=== PATIENT | female | born 2000 | race Hispanic/Latino ===

== ENCOUNTER 2025-08-26 14:24 | Emergency (ER) | payer OTHER ==
[~2025-08-26] VITALS: Ht 170.2 cm; Wt 73.0 kg
[2025-08-26 14:27] VITALS: TEMP 97.1
[2025-08-26] MEDS: LIDOCAINE/PRILOCAINE CREAM 5 GM TUBE TOP ONE (18:14)
[2025-08-26 18:46] VITALS: BP 126/65; O2SAT 97
== END 2025-08-26 18:47 | disposition home or self-care (01) ==
LOC: M ED 14:42
DX: S01.01XA Laceration without foreign body of scalp, initial encounter (principal); W20.8XXA Other cause of strike by thrown, projected or falling object, initial encounter; Y92.89 Other specified places as the place of occurrence of the external cause; Y93.89 Activity, other specified; Y99.1 Military activity